=== PATIENT | female | born 1965 | race Two or more races ===

== ENCOUNTER 2019-08-19 11:00 | Outpatient (CLI) | payer OTHER ==
[~2019-08-19 11:00] MED LIST: CLARINEX5 MG/TAB; FORADIL12 MCG; PROVENTIL0.5 ML/2.5; SINGULAIR10 MG; SYNTHROID100 MCG
== END 2019-08-19 11:16 | disposition home or self-care (01) ==
LOC: SONOGRAMA 11:00
DX: R59.0 Localized enlarged lymph nodes (principal)